=== PATIENT | female | born 2000 | race Two or more races ===

== ENCOUNTER 2025-01-18 01:54 | Day surgery (SDC) | payer OTHER, SELFPAY ==
[2025-01-07 09:55] VITALS: BMI 18.7
--- OUTSIDE RECORDS SUMMARY | 2025-01-18 01:56 | XMS_ITS | Clinical Summary ---
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[employer] Name Role Phone None, Provider MD Primary Care Provider Unavaila ble Allergies No known active allergies Medications No known medications Social History Tobacco Use Types Packs/Day Years Used Date Smoking Tobacco: Never Smokeless Tobacco: Never Tobacco Cessation:Counseling Given: Not Answered Alcohol Use Standard Drinks/Week Comments Never 0 (1 standard drink = 0.6 oz pur e alcohol) Comments Unknown Sex and Gender Information Value Date Recorded Sex Assigned at Female 09/06/2024 7:53 PM CDT Legal Sex Female 7:51 PM CDT Gender Identity Not on file Sexual Orientation Not on file Last Filed Vital Signs Vital Sign Reading Time Taken Comments Blood Pressure 112/78 09/07/2024 4:01 AM CDT Pulse 76 09/07/2024 4:01 AM CDT Temperature 37.1 C (98.8 F) 09/07/2024 2:24 AM CDT Respiratory Rate 16 09/07/2024 4:01 AM CDT Oxygen Saturation 99% 09/07/2024 4:01 AM CDT Inhaled Oxygen Concentration - - Weight 43.7 kg (96 lb 5.5 oz) 09/07/2024 2:24 AM CDT Height 160 cm (5' 3) 09/07/2024 2:24 AM CDT Body Mass Index 17.07 09/07/2024 2:24 AM CDT Plan of Treatment Health Maintenance Due Date Last Done Comments Cervical Cancer Screening Pa p Smear (Age 21 to 29) Every 3 Years 2001 Cervical Cancer Screening 2001 Annual Physical 2004 HPV Vaccines (1 - 3-dose series) 2016 Meningococcal B Vaccine (1 o f 2 - Standard) 2017 Hepatitis C 2019 DTaP, Tdap and Td Vaccines ( 1 - Tdap) 2020 Hepatitis B Vaccines (1 of 3 - 19+ 3-dose series) 2020 COVID-19 Vaccine (1 - 2023-2 5 season) 2024 Meningococcal Vaccine Aged Out No alessio romi eligible based on patient's age to complete this topic Pneumococcal Vaccine: Pediat rics (0 to 5 Years) and At-Risk Patients (6 to 49 Years) Aged Out No longer eligible b ased on patient's age to complete this topic RSV Immunizations Under 20 Months Aged Out No longer eligible based on patient's age to complete this topic Insurance [employer] Care Teams 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
[2025-01-18 12:21] VITALS: BP 96/55; PULSE 60; RESP 18; TEMP 36.6; O2SAT 100
[2025-01-18 12:25] LABS: BEDSIDEPREGUCG Negative (Negative)
[2025-01-18] MEDS: LACTATED RINGERS 1,000 ML 150 ML IV CONT (12:25)
--- NOTE | 2025-01-18 12:55 | WPDANESEPPF ---
Anes - Initial Pre Proc Eval Procedure: Operation Date: 01/18/25 14:00 Proposed Procedures p Esophagogastroduodenoscopy - Luis Nava MD Date/Time: 01/18/25 12:55 Surgeon: Luis Nava MD Pre Op Diagnosis: Epigastric pain Patient Data Age: 24 Gender: F Height: 1.55 m Weight: 44.5 kg Last Vital Signs Temp 97.8 F 01/18/25 12:21 Pulse 60 01/18/25 12:21 Resp 18 01/18/25 12:21 BP 96/55 L 01/18/25 12:21 Pulse Ox 100 01/18/25 12:21 O2 Del Method Room Air 01/18/25 12:21 Allergies Allergy/AdvReac Type Severity Reaction Status Date / Time No Known Allergies Allergy Verified 01/07/25 09:55 Home Medications ?Medication ?Instructions ?Recorded ?Confirmed ?Type pantoprazole 40 mg tablet,delayed 40 mg PO QAM 01/03/25 01/18/25 History release Laboratory Tests 01/18/25 12:22 POC Urine HCG, Qual Negative (Negative) Patient hx anesthesia problems: none Family hx anesthesia problems: none Results Review: All pre-operative results and documents have been reviewed as part of the pre-operative evaluation. ON LICENSE OF [facility] Past Medical History Medical History Heartburn Nausea and vomiting Epigastric pain Social History Social History Smoking status: Never smoker Alcohol intake: never Substance use: never Substance use type: does not use Living arrangements: with family Spiritual care concerns: No Anes - Eval Final PreProcedure Day of Procedure 01/18/25 12:55 Patient weight: normal and thin Lungs: normal air movement Airway: Mallampati scale class II Neurological: alert and oriented Last oral intake: >/= 8 hours ASA classification: I Emergent: no Anesthetic plan: proceed Anesthesia type and monitoring: general GIVS and standard monitoring Results Review: All pre-operative results and documents have been reviewed as part of the pre-operative evaluation. GERD, active without cp or sob. Informed Consent: The patient's anesthetic plan and its attendant risks and benefits were discussed with the patient/family/POA. Questions were solicited and answers provided to the satisfaction of the patient/family/POA.
--- NOTE | 2025-01-18 13:16 | WPDHPUPDATE1 ---
History and Physical Update Update Date/Time: 01/18/25 13:16 History and Physical has been reviewed, including an updated exam of the patient. There are NO changes in the patient's condition. Risks, benefits, and alternatives have been discussed and questions answered. Patient agrees to proceed with procedure.
--- NOTE | 2025-01-18 13:24 | S_PTH ---
PATIENT: Ana Cristina Boateng LOC: [facility] Polk#:[id number] AGE/SX: ROOM: RE01/18/[address]: Luis Nava MD : [id number] BED: DIS: 01/18/2025 SPEC #: [id number] RECD: 01/18/25 14:03 STATUS: BECKY REJared #: [id number] ELSA: 01/18/25 13:[address]: Luis Nava DEPT: [facility] Surgical RECD BY: Whitney Martinez ENTERED: 01/18/25 14:03 SP TYPE: Surgical OTHR DR: Arsenio Mistry MD Tissues: A - Gastric Biopsy B - Small Bowel Bx Procedures: Hematoxylin and Eosin Stain Gross and Microscopic Level 4
[2025-01-18 13:28] VITALS: BP 136/97; PULSE 75; RESP 20; O2SAT 99
[2025-01-18 13:38] VITALS: BP 91/53; PULSE 59; RESP 16; O2SAT 100
[2025-01-18 13:48] VITALS: BP 95/70; PULSE 58; RESP 18; O2SAT 100
== END 2025-01-18 14:07 | disposition home or self-care (01) ==
PROVIDERS: Anesthesiology; PCP Emergency Medicine; Referring Provider Nurse Practitioner Family; Visit Provider Internal Medicine Gastroenterology
PROC: 0DJ08ZZ Inspection of Upper Intestinal Tract, Via Natural or Artificial Opening Endoscopic (ICD-10-PCS; CPT 43239; principal; 2025-01-18 14:00)
DX: K21.9 Gastro-esophageal reflux disease without esophagitis (principal); K31.89 Other diseases of stomach and duodenum; Z98.890 Other specified postprocedural states
CPT/HCPCS: 43239; 88305; J2003; J2704; J7120